=== PATIENT | male | born 1945 ===

== ENCOUNTER → 2018-08-12 | Outpatient (CLI) | payer OTHER | END | disposition home or self-care (01) | LOC: LAB 12:15 | DX: R97.20 Elevated prostate specific antigen [PSA] (principal) ==

== ENCOUNTER 2018-09-02 07:08 | Outpatient (CLI) | payer OTHER | END 2018-09-02 07:18 | disposition home or self-care (01) | LOC: SONOGRAMA 07:08 | DX: R97.20 Elevated prostate specific antigen [PSA] (principal) ==

== ENCOUNTER 2018-09-24 12:59 | Emergency (ER) | payer OTHER ==
[~2018-09-24] VITALS: Ht 170.2 cm; Wt 85.7 kg
[2018-09-24] MEDS ORDERED: ATIVAN0.5 M1 PO (13:08)
[2018-09-24] MEDS ORDERED: FINASTERIDE5 MG PO (13:09)
[2018-09-24] MEDS ORDERED: CEFUROXIME500 MG PO (13:09)
[2018-09-24] MEDS ORDERED: ALTOPREV20 MG PO (13:09)
[2018-09-24] MEDS ORDERED: TAMS0.4C PO (13:09)
[2018-09-24] MEDS ORDERED: FENOFIBRATE145 MG PO (13:10)
[2018-09-24] MEDS ORDERED: OMEPRAZOLE20 MG PO (13:10)
[2018-09-24] MEDS ORDERED: DICYCLOMINE HCL20 MG PO (13:10)
== END 2018-09-24 19:15 | disposition home or self-care (01) ==
LOC: ER 12:59
DX: R33.8 Other retention of urine (principal)